=== PATIENT | female | born 1950 | race Caucasian/White ===

== ENCOUNTER 2023-05-15 13:28 | Outpatient (CLI) | payer MEDICARE, OTHER, SELFPAY ==
--- NOTE | ~2023-05-15 | MR_ITS ---
EXAMINATION: MR pelvis wo/w con DATE: 05/15/2023 14:48 INDICATION: Pelvic mass. TECHNIQUE: Magnetic resonance imaging (MRI) of the pelvis was performed without and with 17 mL MultiH ance intravenous contrast. COMPARISON: None. FINDINGS: The uterus is absent. There is a 2.9 cm enhancing mass in left adnexa. The ovaries are not visualized . There is no free intraperitoneal fluid. IMPRESSION: 1. 2.9 cm enhancing mass in left adnexa. The differential diagnosis includes fibroid and peritoneal m etastatic disease. Reviewed, dictated and finalized at location A. IMPRESSION: 1. 2.9 cm enhancing mass in left adnexa. The differential diagnosis includes fi broid and peritoneal metastatic disease.
== END 2023-05-15 13:29 | disposition home or self-care (01) ==
LOC: ANHIMG 13:31
PROVIDERS: Visit Provider Obstetrics & Gynecology
DX: R19.09 Other intra-abdominal and pelvic swelling, mass and lump (principal)
CPT/HCPCS: 72197; A9577